=== PATIENT | female | born 1935 | race Caucasian/White ===

== ENCOUNTER → 2020-01-01 | Outpatient (CLI) | payer MEDICARE ==
[~2020-01-01] MED LIST: ASPI81TA45 PO; BRIM5DRO3 EACHEYE; CHOL2000 PO; FEBU40TA PO; FERR325T18 PO; FOLI0.8T2 PO; METO50TA4 PO; OMEP-110 PO; PRED10TA PO; TIMO5DRO5 EACHEYE; TRAV5DRO EACHEYE; WARF-36 PO
== END | disposition home or self-care (01) ==
LOC: CFH 10:11
PROVIDERS: ATTEND Family Medicine
DX: M81.0 Age-related osteoporosis without current pathological fracture (principal); N95.8 Other specified menopausal and perimenopausal disorders
CPT/HCPCS: 77080